=== PATIENT | male | born 1970 | race Caucasian/White ===

== ENCOUNTER → 2018-05-25 15:23 | Outpatient (CLI) | payer BC, SELFPAY ==
--- NOTE | 2018-05-25 15:30 | RAD_ITS ---
STUDY: X-RAY - ABDOMEN/PELVIS REASON FOR EXAM: Male, 48 years old. TECHNIQUE: 2 views COMPARISON: None. FINDINGS: Normal visualized lung bases. Mild fecal stasis. No small bowel distention and no free intraperitoneal air. No abnormal calcifications in the expected locations of the kidneys, ureters and urinary bladder. The visualized liver, spleen and kidneys are grossly normal in size and morphology. Normal soft tissue structures. Normal visualized osseous structures. RAD/Abdomen Single View IMPRESSION: Mild fecal stasis. Nothing acute. No kidney stones are identified Electronically Signed: Micky Cooley, at 1:47 EDT Tel , Service support ,
== END ==
PROVIDERS: Family Provider Internal Medicine; PCP Internal Medicine; Visit Provider Urology
DX: N20.0 Calculus of kidney (principal)
CPT/HCPCS: 74018

== ENCOUNTER → 2019-05-31 08:57 | Outpatient (CLI) | payer BC, SELFPAY ==
[2019-05-31 09:54] LABS: PSA,Total - Annual Screen 0.98 ng/mL (0.00-4.00)
== END ==
PROVIDERS: Family Provider Internal Medicine; PCP Internal Medicine; Referring Provider Urology; Visit Provider Urology
DX: Z12.5 Encounter for screening for malignant neoplasm of prostate (principal)
CPT/HCPCS: 36415; 84153; G0103

== ENCOUNTER 2023-07-04 07:45 | Emergency (ER) | payer BC, SELFPAY ==
[2023-07-04 07:46] VITALS: BP 153/80; PULSE 88; RESP 14; TEMP 35.8; O2SAT 98
--- NOTE | 2023-07-04 08:06 | ED.VIS.BACK ---
HPI History of Present Illness Chief Complaint: Back Detail of Chief Complaint: Atraumatic lower back pain. Informant: patient and spouse/S.O. Onset/Context/Timing Onset: Today Context: Sudden Onset Timing: Continuous Quality: Sharp Location: Lumbar Current Severity: Moderate Maximum Severity: Severe Worsened by: improves with Movement Relieved by: Remaining Still Associated Symptoms Associated Symptoms: Negative for Numbness, Tingling, Radiation to Right Leg, Radiation to Left Leg, Fever, Abdominal Pain, Dysuria, Unable to Ambulate, Unable to Transfer, Urinary Retention, Urinary Incontinence, Constipation or Fecal Incontinence Narrative Narrative: -year-old male history of MS and hypertension. No prior back surgeries. States this morning around 630 had lower back pain in the midline. No radiation to his legs. No bowel or bladder incontinence. No leg weakness or numbness. If he gets up and stands the pain is worse to where he thinks he might fall. He has never had back surgery. He denies any fever or dysuria. He denies any fall or trauma. Patient does take baclofen for MS. Prior similar symptoms: Yes Recent Illness/Hospitalization: No PFSH PFSH Home Medications atorvastatin 10 mg tablet 10 mg PO QHS 05/02/16 [History Last Taken Unknown] baclofen 10 mg tablet 10 mg PO QHS 05/02/16 [History Last Taken Unknown] dimethyl fumarate 240 mg capsule,delayed release (Tecfidera) 240 mg PO BID 05/02/16 [History Last Taken Unknown] lisinopril 5 mg tablet 5 mg PO QHS 05/02/16 [History Last Taken Unknown] tadalafil 10 mg tablet (Cialis) 10 mg PO QHS 05/02/16 [History Last Taken Unknown] ciprofloxacin HCl 500 mg tablet 500 mg PO BID ##6 09/13/16 [Rx Last Taken Unknown] hydrocodone 5 mg-acetaminophen 300 mg tablet (Vicodin) 1 tab PO Q6H PRN PRN Pain #14 tabs 09/13/16 [Rx Last Taken Unknown] hydrocodone 5 mg-acetaminophen 300 mg tablet 2 tab PO Q6H PRN pain 6 days #20 tabs 07/04/23 [Rx Last Taken Unknown] Allergy/AdvReac Type Severity Reaction Status Date / Time oxycodone HCl Allergy Unknown Verified 07/04/23 07:46 [From OxyContin] azithromycin AdvReac Unknown Verified 07/04/23 07:46 [From Zithromax Z-Reynaldo] Social History Smoking Status: Never smoker ROS ROS ED ROS Narrative Denies recent illness. Review of Systems ROS Unobtainable: Denies due to encephalopathy Constitutional Constitutional ED: Denies chills or fever(s) Eyes Eyes: Denies blurry vision ENT ENT ED: Denies ear pain Cardiovascular Cardiovascular: Denies chest pain Respiratory/Chest Respiratory/Chest: Denies dyspnea Gastrointestinal Gastrointestinal: Denies abdominal pain Genitourinary Genitourinary ED: Denies dysuria or hematuria Musculoskeletal Musculoskeletal: Reports back pain; Denies arthralgias Integumentary Denies abscess Neurologic Neurologic: Denies headache(s) Psychiatric Psychiatric: Denies anxiety Endocrine Endocrinology: Denies cold intolerance Hematologic/Lymphatic Hematologic/Lymphatic: Denies easy bleeding or easy bruising Allergic/Immunologic Allergic/Immunologic ED: Denies mouth swelling or tongue swelling EXAM Physical Exam Narrative Exam Narrative: Well-appearing 53-year-old male sitting upright in bed. present in the room. HEENT exam unremarkable. Neck nontender. Lungs clear to auscultation bilaterally. Heart regular rhythm no murmur. Chest wall nontender. Abdomen soft nontender. No pulsatile mass. Moving all 4 extremities. 5-5 human resources temp strength. Dorsi plantarflexion intact. Negative straight leg raise bilaterally. There is no radiculopathy but he is low back pain with lifting his right leg. No cauda equina. No saddle anesthesia. Normal medial thigh sensation. Normal sensation lower extremities. Back there is no reproducible pain on his back he says its painful in his mid lumbar spine area. There is no signs of trauma. No discoloration. There is no paraspinal tenderness or spasm. His cervical thoracic spines are nontender and there is no upper back reproducible tenderness. Neurologic exam he is awake and alert with no focal motor or sensory deficits. Deftly no cauda equina. Const Vital Signs: 07/04/23 07:46 Temperature 96.4 F L Temperature Source Temporal Pulse Rate 88 Respiratory Rate 14 Blood Pressure 153/80 H Blood Pressure Mean 104 Pulse Ox 98 Oxygen Delivery Method Room Air Positive well nourished and well developed; Negative for cachectic, contractures or unkempt General Appearance ED: well developed and NAD; Negative for unkempt, cachectic, contractures or pallor Nutritional Appearance: Negative for cachectic HEENT Reports moist mucous membranes; Denies dry mucous membranes Negative for trauma or tenderness Mouth ED: No dry mucous membranes Mouth: No dry mucous membranes Eyes PERRL and EOMs intact bilaterally General Eye ED: Negative for pale conjunctiva or scleral icterus Neck no lymphadenopathy, supple and no JVD General: Negative for tenderness Thyroid: Negative for other Chest Wall Chest: Negative for other Resp normal respiratory effort and clear to auscultation bilaterally Effort and Inspection: Negative for pain with movement Auscultation: Negative for rales, rhonchi or wheezes Percussion: Negative for other Cardio regular rate, regular rhythm, S1 normal heart sound, S2 normal heart sound and no murmurs Palpation: Negative for palpable S3 Rate: Negative for bradycardia or tachycardic Rhythm: Negative for abnormal rhythm Bruits: Negative for other GI normal to inspection, nondistended, normoactive bowel sounds, soft to palpation, non-tender, non-distended and no masses Inspection: Negative for abdominal distention Palpation: Negative for tender, guarding or rebound tenderness present Back/Spine normal to inspection and no thoracic nor lumbar tenderness General Back: Negative for CVA tenderness Cervical Spine: Negative for cervical spine tenderness Thoracic Spine / Upper Back: Negative for paraspinal muscle tenderness Lumbar Spine / Lower Back: ROM limited Extremity normal to inspection and no clubbing, cyanosis or edema General Extremety ED: Negative for edema or tenderness General Extremity: Negative for edema Neuro oriented x3 and no sensory deficits noted Sensorium / Orientation: alert; Negative for confused, lethargic or stuporous Motor Exam: strength 5/5 throughout Psych mental status grossly normal Appearance: Negative for unkempt Attitude: No agitated Mood & Affect: Negative for depressed, sad or tearful Skin no rashes or lesions noted and no wounds General Skin Exam: Negative for jaundice or pallor Lesions: No lesion noted Rashes: No rashes noted Trauma: Negative for abrasion Wounds: Negative for wounds noted MDM MDM MDM Narrative Medical decision making narrative: 53-year-old male with low back pain. This is not reproducible. There is no paralumbar soft tissue spasm or tenderness. No bony tenderness. He has exquisite pain with movement and decreased range of motion due to pain. Be treated with IM morphine, p.o. Zofran and Toradol. Reassess. I do not think imaging will be of any significant benefit at this time. Repeat exam patient doing well lying in bed at 9:50 AM. Previously the nurses got him up to walk to go to the restroom he had increased pain. He still has good motor strength and sensation in his legs and no signs of cauda equina. He will be discharged home with Vicodin for pain. He is already on an anti-inflammatory and a muscle relaxant at home and he will follow-up with his primary care physician if not improving next week. History & Record Review Discussion w/independent historian: Patient and Family Discharge Plan Triage Chief Complaint: Back ED Provider: Sundar Turner Dx/Rx/DC Orders Clinical Impression: Back pain, Family history of MS (multiple sclerosis) Instructions: ED Back Pain (Acute or Chronic) Prescriptions: New hydrocodone-acetaminophen 5-300 mg tablet 2 tab PO Q6H PRN (Reason: pain) 6 Days Qty: 20 0RF No Action atorvastatin 10 MG tablet 10 mg PO QHS Patient Comments: CHOLESTEROL baclofen 10 MG tablet 10 mg PO QHS lisinopril 5 MG tablet 5 mg PO QHS tadalafil [Cialis] 10 MG tablet 10 mg PO QHS dimethyl fumarate [Tecfidera] 240 MG capsule,delayed release(DR/EC) 240 mg PO BID Patient Comments: MS ciprofloxacin HCl 500 MG tablet 500 mg PO BID Qty: 6 0RF hydrocodone-acetaminophen [Vicodin] 1 EACH tablet 1 tab PO Q6H PRN PRN (Reason: Pain) Qty: 14 0RF Rx Instructions: Primary Care Provider: Bobo Hannon Referrals: Bobo Hannon MD [Primary Care Provider] - 3-5 Days if not improving Activity Restrictions/Additional Instructions: Vicodin for pain. Continue your home anti-inflammatory. Hope with your doctor if not improving. Return to the emergency department if you are worse. Increasing pain, develop a fever, significant leg weakness or bowel or bladder incontinence. Disposition Disposition: Home, Self Care
[2023-07-04] MEDS: Ketorolac 60 MG/2 ML Vial IM (08:11)
[2023-07-04] MEDS: Ondansetron ODT 4 MG Tablet PO (08:11)
[2023-07-04] MEDS: morphine 10 MG/ML Syringe IM (08:12)
== END 2023-07-04 10:07 | disposition home or self-care (01) ==
PROVIDERS: Emergency Provider Emergency Medicine; PCP Internal Medicine; Visit Provider Emergency Medicine
DX: M54.9 Dorsalgia, unspecified (principal); G35 Multiple sclerosis; I10 Essential (primary) hypertension; Z79.899 Other long term (current) drug therapy
CPT/HCPCS: 96372; 99282

== ENCOUNTER → 2023-07-07 | Outpatient (CLI) | payer BC, SELFPAY ==
--- NOTE | 2023-07-07 16:01 | RAD_ITS ---
EXAM: XR ABDOMEN, 1 VIEW CLINICAL INDICATION: KIDNEY STONE TECHNIQUE: Frontal supine view of the abdomen/pelvis. COMPARISON: May 25, 2018 FINDINGS: LOWER THORAX: No acute pathology. GASTROINTESTINAL TRACT: Moderate stool in most of the proximal half of the colon. Mild scattered gas in distal colon, rectum, minimal small bowel gas. Non-obstructive. No bowel or stomach distention. ORGANS: Unremarkable as visualized. No organomegaly. No visible kidney stone or stone in the expected region of the ureters or bladder. BONES/JOINTS: No acute pathology. SOFT TISSUES: No acute pathology. RAD/Abdomen Single View IMPRESSION: No visible urinary tract stone, organomegaly, or obstruction. Electronically Signed: Mago Borjas MD at 8:31 EDT ,
== END | disposition home or self-care (01) ==
LOC: RAD 16:00
PROVIDERS: PCP Internal Medicine; Referring Provider Urology; Visit Provider Urology
DX: N20.0 Calculus of kidney (principal)
CPT/HCPCS: 74018

== ENCOUNTER 2023-08-19 09:18 | Outpatient (CLI) | payer BC, SELFPAY ==
[2023-08-19 10:24] LABS: PSA,Total - Annual Screen 1.28 ng/mL (0.00-4.00)
== END 2023-08-19 23:59 | disposition home or self-care (01) ==
LOC: LAB 09:20
PROVIDERS: PCP Internal Medicine; Visit Provider Nurse Practitioner
DX: Z12.5 Encounter for screening for malignant neoplasm of prostate (principal)
CPT/HCPCS: 36415; 84153; G0103